=== PATIENT | female | born 1970 | race Caucasian/White ===

== ENCOUNTER 2019-12-15 18:45 | Emergency (ER) | payer OTHER ==
[~2019-12-15] VITALS: Ht 165.1 cm; Wt 72.6 kg
[2019-12-15 19:01] VITALS: Ht 165.1 cm; Wt 72.6 kg
[2019-12-15 21:32] VITALS: BP 116/79
== END 2019-12-15 21:33 | disposition home or self-care (01) ==
LOC: ED 18:45
DX: S01.511A Laceration without foreign body of lip, initial encounter (principal); Y09 Assault by unspecified means; Y93.89 Activity, other specified; Y92.89 Other specified places as the place of occurrence of the external cause; Y99.8 Other external cause status
CPT/HCPCS: 90715; J2001; Q0162